=== PATIENT | female | born 1965 | race Caucasian/White ===

== ENCOUNTER → 2016-07-09 | Day surgery (SDC) | payer OTHER ==
[~2016-07-09] VITALS: Ht 170.2 cm; Wt 60.7 kg
[~2016-07-09] MED LIST: *PROMETHAZINE 25 MG/ML VIAL PERIprocedural use ONLY ONE; *morphine SULFATE 8 MG/ML PERIprocedure ONLY ONE; ACETAMINOPHEN 1000 MG/100 ML VIAL IV ONE; ACETAMINOPHEN 1000 MG/100 ML VIAL IV SCH; BACL10TA PO; BUPIVACAINE/EPINEPHRINE 0.25% PF 30 ML VIAL INFIL ONE; DEXAMETHASONE SOD PHOS 4 MG/ML VIAL ONE; DIAZ5TAB PO; DICY10CA12 PO; DO NOT ADM ANY ANTICOAGULANT DRUGS XX PRN; ESTR42.5V VAGINAL; FAMOTIDINE 20 MG/2 ML VIAL ONE; HYDROmorphone HCL 2 MG TAB PO PRN; INSULIN HUMAN REGULAR 1,000 UNITS/10 ML VIAL SQ PRN; KETOROLAC TROMETHAMINE 30 MG/ML (IVP) VIAL IV PUSH ONE; KETOROLAC TROMETHAMINE 30 MG/ML (IVP) VIAL ONE; LACTATED RINGER'S 1000 ML IV SCH; METOPROLOL TARTRATE 25 MG TAB PO PRN; MIDAZOLAM HCL 2 MG/2 ML VIAL ONE; MORPHINE SULFATE 4 MG/ML INJ IV PRN; MORPHINE SULFATE 4 MG/ML INJ ONE; NEOSTIGMINE METHYLSULFATE 10 MG/10 ML VIAL IV PUSH ONE; OMEP20TA PO; ONDANSETRON HCL 4 MG/2 ML VIAL IV PRN; ONDANSETRON HCL 4 MG/2 ML VIAL IV PUSH ONE; ONDANSETRON HCL 4 MG/2 ML VIAL IV PUSH SCH; ONDANSETRON HCL 4 MG/2 ML VIAL ONE; PROM25TA5 PO; PROPOFOL 200 MG/20 ML AMP IV ONE; SODIUM CHLOR 0.9% 250 ML INJ 250 ML ONE; SODIUM CHLORID 0.9% 500 ML IV SCH; TRAM50TA PO; VANCOMYCIN 1,000 MG/NS 250ML (for <70 kg) IV SCH; VANCOMYCIN HCL 1000 MG VIAL ONE; fentaNYL CITRATE 250 MCG/5 ML AMP ONE; metroNIDAZOLE 500 MG INJ 100 ML IV ONE; metroNIDAZOLE 500 MG INJ 100 ML IV SCH
[2016-07-09 08:30] VITALS: BP 108/76; PULSE 80; RESP 20; TEMP 99.1; O2SAT 99
[2016-07-09 12:20] VITALS: BP 127/71; PULSE 65; RESP 18; TEMP 97.4; O2SAT 96
--- NOTE | 2016-07-16 16:47 | MP ---
cc: TYLER MATHEW M.D. DATE OF SURGERY 05/09/17 1965 DATE OF OPERATION 07/09/2016 PREOPERATIVE DIAGNOSIS Symptomatic cholelithiasis. POSTOPERATIVE DIAGNOSIS Symptomatic cholelithiasis. PROCEDURE Laparoscopic cholecystectomy SURGEON Grayson Mathew MD ANESTHESIA General endotracheal ESTIMATED BLOOD LOSS Scant FINDINGS Gallbladder with stones. SPECIMEN Gallbladder with stones. COMPLICATIONS None OPERATION The patient was brought to the operating room and placed on the operating table in supine position. Bilateral sequential inflation device placed on lower extremities. General anesthesia instituted. Antibiotics initiated. The abdomen was prepped and draped sterilely. The umbilical region anesthetized with 0.25% Marcaine with epinephrine. A skin incision was made, 5 mm OptiView port placed under direct vision and pneumoperitoneum created. Under direct vision, a 12 mm subxiphoid and two 5 mm right upper quadrant ports were placed. Prior to placement of all ports, the skin and peritoneum were anesthetized with 0.25% Marcaine with epinephrine. The patient was placed in reverse Trendelenburg position right side up. The gallbladder retracted into upper abdomen, infundibulum retracted, Calot's triangle opened. The hepatoduodenal ligament incised. The cystic artery identified, circumferentially dissected. It was ligated with hemoclips and divided between the clips. The cystic duct identified, circumferentially dissected, ligated with hemoclips divided between the clips. The gallbladder was then removed from the liver bed using a Bovie. Hemostasis achieved along the way using a Bovie. The gallbladder was retrieved from the peritoneal cavity in an Endopouch through the 12 mm port site. Liver bed was inspected. No evidence of bile leak or hemorrhage. CO2 was released, all ports removed, all skin incisions closed with 4-0 Monocryl. The abdominal wall was cleaned and sterile dressing placed. The patient was awakened and taken to recovery room. MD KELLY Barrow/ /4:02 PM /4:43 PM
== END | disposition home or self-care (01) ==
LOC: HSDC 07:36
PROVIDERS: ATTEND Surgery
DX: K80.10 Calculus of gallbladder with chronic cholecystitis without obstruction (principal); F17.200 Nicotine dependence, unspecified, uncomplicated
CPT/HCPCS: 00790; 47562; 88304; J0131; J1100; J2250; J2270; J2405; J2550; J2710; J3010; J3370; J7050; J1885

== ENCOUNTER 2017-09-10 11:23 | Emergency (ER) | payer OTHER ==
[~2017-09-10] VITALS: Ht 170.2 cm; Wt 65.0 kg
[~2017-09-10 11:23] MED LIST changes: -*PROMETHAZINE 25 MG/ML VIAL PERIprocedural use ONLY ONE; -*morphine SULFATE 8 MG/ML PERIprocedure ONLY ONE; -ACETAMINOPHEN 1000 MG/100 ML VIAL IV ONE; -ACETAMINOPHEN 1000 MG/100 ML VIAL IV SCH; -BUPIVACAINE/EPINEPHRINE 0.25% PF 30 ML VIAL INFIL ONE; -DEXAMETHASONE SOD PHOS 4 MG/ML VIAL ONE; -DO NOT ADM ANY ANTICOAGULANT DRUGS XX PRN; -FAMOTIDINE 20 MG/2 ML VIAL ONE; -HYDROmorphone HCL 2 MG TAB PO PRN; -INSULIN HUMAN REGULAR 1,000 UNITS/10 ML VIAL SQ PRN; -KETOROLAC TROMETHAMINE 30 MG/ML (IVP) VIAL IV PUSH ONE; -KETOROLAC TROMETHAMINE 30 MG/ML (IVP) VIAL ONE; -LACTATED RINGER'S 1000 ML IV SCH; -METOPROLOL TARTRATE 25 MG TAB PO PRN; -MIDAZOLAM HCL 2 MG/2 ML VIAL ONE; -MORPHINE SULFATE 4 MG/ML INJ IV PRN; -MORPHINE SULFATE 4 MG/ML INJ ONE; -NEOSTIGMINE METHYLSULFATE 10 MG/10 ML VIAL IV PUSH ONE; -OMEP20TA PO; +OMEP20TA93 PO; -ONDANSETRON HCL 4 MG/2 ML VIAL IV PRN; -ONDANSETRON HCL 4 MG/2 ML VIAL IV PUSH ONE; -ONDANSETRON HCL 4 MG/2 ML VIAL IV PUSH SCH; -ONDANSETRON HCL 4 MG/2 ML VIAL ONE; -PROPOFOL 200 MG/20 ML AMP IV ONE; -SODIUM CHLOR 0.9% 250 ML INJ 250 ML ONE; -SODIUM CHLORID 0.9% 500 ML IV SCH; -VANCOMYCIN 1,000 MG/NS 250ML (for <70 kg) IV SCH; -VANCOMYCIN HCL 1000 MG VIAL ONE; -fentaNYL CITRATE 250 MCG/5 ML AMP ONE; -metroNIDAZOLE 500 MG INJ 100 ML IV ONE; -metroNIDAZOLE 500 MG INJ 100 ML IV SCH
[2017-09-10 11:37] VITALS: BP 146/73; PULSE 92; RESP 16; TEMP 99.1; O2SAT 98
[2017-09-10] MEDS ORDERED: SODIUM CHLORIDE 0.9% FLUSH 10 ML FLUSH IVF PRN (12:00)
[2017-09-10] MEDS ORDERED: PROM25TA10 PO (12:01)
--- NOTE | 2017-09-10 12:01 | PD ---
HPI Chief Complaint: Syncope/Near-Syncope Time Seen by Provider: 11:49 Travel History International Travel<30 days: No Contact w/Intl Traveler<30days: No Traveled to known affect area: No History of Present Illness HPI The patient was seen and examined in the presence of the nurse. This patient complains of feeling drowsy and groggy and at times confused. She says that a week ago she slipped and fell and hit the back of her head on the floor in the bathroom. Seems to be worse since that time. She has history of fibromyalgia and IBS. She takes Valium and tramadol and Phenergan and baclofen. She denies any intentional overdose or overuse of medication. Symptoms severity is moderate. No alleviating factors. Symptoms are likely exacerbated by her multiple sedating medications. Duration one week. She denies alcohol or drug abuse but does drink 3 times per week PFSH Past Medical History Cancer: No Cardiovascular Problems: Yes (MITRAL PROLASPE VALVE) Diabetes: No Diminished Hearing: No Endocrine: No Genitourinary: No Hepatitis: No Hiatal Hernia: No Immune Disorder: No Musculoskeletal: Yes (COSTOCONDRITIS, HX FALLS) Neurologic: Yes (FIBROMYALGIA) Psychiatric: Yes (ANXIETY AND DEPRESSION) Reproductive: Yes (MENOPAUSE) Respiratory: Yes (PE AFTER SURGERY 1995 DUE TO MEDICATION ERROR PER PATIENT.) Thyroid Disease: No ?: Not Menopausal: Yes Past Surgical History Abdominal Surgery: No AICD: No Cardiac Surgery: No Ear Surgery: No Endocrine Surgery: No Eye Surgery: No Genitourinary Surgery: No Gynecologic Surgery: No Joint Replacement: No Oral Surgery: Yes (TONSILECTOMY) Pacemaker: No Thoracic Surgery: No Social History Alcohol Use: Yes (4-5 beers/daily) Tobacco Use: Yes (7-8 cigarettes/daily) Substance Use: No Allergies-Medications (Allergen,Severity, Reaction): Coded Allergies: penicillin G (Unverified Allergy, Intermediate, RASH, 09/10/17) codeine (Unverified Adverse Reaction, Intermediate, VOMITING, 09/10/17) Reported Meds & Prescriptions Reported Meds & Active Scripts Active Reported Phenergan (Promethazine HCl) 25 Mg Tablet 25 Mg PO BID Omeprazole 20 Mg Tab 20 Mg PO DAILY Diazepam 5 Mg Tab 5 Mg PO BID Baclofen 10 Mg Tab 10 Mg PO TID Tramadol (Tramadol HCl) 50 Mg Tab 50 Mg PO Q6H Review of Systems General / Constitutional: No: Fever Eyes: No: Visual changes HENT: Positive: Headaches Cardiovascular: No: Chest Pain or Discomfort Respiratory: No: Shortness of Breath Gastrointestinal: No: Abdominal Pain Genitourinary: No: Dysuria Musculoskeletal: No: Pain Skin: No Rash Neurologic: Positive: Headache, Change in Mentation, No: Weakness Psychiatric: No: Depression Endocrine: No: Polydipsia Hematologic/Lymphatic: No: Easy Bruising Physical Exam Narrative GENERAL: Well-nourished, well-developed patient in no apparent distress. SKIN: Focused skin assessment reveals no rash and nodules. Skin is Warm and dry. HEAD: Atraumatic. Normocephalic. EYES: Pupils equal and round. No scleral icterus. No injection or drainage. ENT: No nasal bleeding or discharge. Mucous membranes pink and moist. NECK: Trachea midline. No JVD. No meningeal signs CARDIOVASCULAR: Regular rate and rhythm. No murmur appreciated. RESPIRATORY: No accessory muscle use. Clear to auscultation. Breath sounds equal bilaterally. GASTROINTESTINAL: Abdomen soft, non-tender, nondistended. Hepatic and splenic margins not palpable. MUSCULOSKELETAL: No obvious deformities. No clubbing. No cyanosis. No edema. NEUROLOGICAL: Awake but a bit drowsy but follows commands and answers questions. No obvious cranial nerve deficits. Motor grossly within normal limits. Normal speech. PSYCHIATRIC: Appropriate mood and affect; insight and judgment slightly reduced . Data Data Last Documented VS Vital Signs Date Time Temp Pulse Resp B/P (MAP) Pulse Ox O2 Delivery O2 Flow Rate FiO2 09/10/17 13:49 64 20 140/77 (98) 97 09/10/17 11:37 99.1 Orders Orders Basic Metabolic Panel (Bmp) (09/10/17 11:55) Complete Blood Count With Diff (09/10/17 11:55) Urinalysis - C+S If Indicated (09/10/17 11:55) Ct Brain W/O Iv Contrast(Rout) (09/10/17 11:55) Iv Access Insert/Monitor (09/10/17 11:55) Sodium Chloride 0.9% Flush (Ns Flush) (09/10/17 12:00) Drug Screen, Random Urine (09/10/17 11:55) Alcohol (Ethanol) (09/10/17 11:55) I-Stat Profile (09/10/17 12:05) Labs Laboratory Tests Test 09/10/17 12:05 09/10/17 12:58 White Blood Count 8.1 TH/MM3 Red Blood Count 4.19 MIL/MM3 Hemoglobin 13.3 GM/DL Bedside Hemoglobin G/DL Hematocrit 40.0 % Bedside Hematocrit % Mean Corpuscular Volume 95.3 FL Mean Corpuscular Hemoglobin 31.8 PG Mean Corpuscular Hemoglobin Concent 33.3 % Red Cell Distribution Width 13.3 % Platelet Count 217 TH/MM3 Mean Platelet Volume 8.6 FL Neutrophils (%) (Auto) 73.0 % Lymphocytes (%) (Auto) 16.6 % Monocytes (%) (Auto) 4.6 % Eosinophils (%) (Auto) 1.3 % Basophils (%) (Auto) 4.5 % Neutrophils # (Auto) 5.9 TH/MM3 Lymphocytes # (Auto) 1.3 TH/MM3 Monocytes # (Auto) 0.4 TH/MM3 Eosinophils # (Auto) 0.1 TH/MM3 Basophils # (Auto) 0.4 TH/MM3 CBC Comment DIFF FINAL Differential Comment Bedside Sodium 139 MMOL/L Blood Urea Nitrogen 15 MG/DL Creatinine 1.02 MG/DL Random Glucose 138 MG/DL Calcium Level 8.8 MG/DL Sodium Level 137 MEQ/L Potassium Level 4.4 MEQ/L Chloride Level 103 MEQ/L Carbon Dioxide Level 26.0 MEQ/L Bedside Potassium 4.4 MMOL/L Bedside Chloride 102 MMOL/L Anion Gap 8 MEQ/L Bedside Blood Urea Nitrogen 47 MG/DL Bedside Creatinine 0.7 MG/DL Estimat Glomerular Filtration Rate 56 ML/MIN Bedside Glucose 141 MG/DL Ethyl Alcohol Level LESS THAN 3 MG/DL Urine Collection Type VOIDED Urine Color STRAW Urine Turbidity CLEAR Urine pH 6.0 Urine Specific [place] LESS/EQUAL 1.005 Urine Protein NEG mg/dL Urine Glucose (UA) NEG mg/dL Urine Ketones NEG mg/dL Urine Occult Blood TRACE Urine Nitrite NEG Urine Bilirubin NEG Urine Urobilinogen 0.2 MG/DL Urine Leukocyte Esterase NEG Urine Squamous Epithelial Cells 0-2 /hpf Microscopic Urinalysis Comment CULT NOT INDICATED Urine Opiates Screen NEG Urine Barbiturates Screen NEG Urine Amphetamines Screen NEG Urine Benzodiazepines Screen POS Urine Cocaine Screen NEG Urine Cannabinoids Screen NEG MDM Medical Decision Making Medical Screen Exam Complete: Yes Emergency Medical Condition: Yes Medical Record Reviewed: Yes Differential Diagnosis Polypharmacy, overmedication, concussion, intracranial hemorrhage Narrative Course I have reviewed the patient's electronic medical record. I don't see an acute neurologic deficit here. She has some mild global drowsiness suggesting overmedication Brain CT is normal Labs and urine sent Urine is clean and labs reasonably normal Tox screen negative except for the benzo she is prescribed alcohol negative I believe this patient is significantly overmedicated. She is not rising to a level of hospitalization. Recommending she stop using baclofen and Phenergan and sparingly use her tramadol Recommend she gradually wean off her Valium but work with her doctor on this. Diagnosis Primary Impression: Medication side effects Additional Impressions: Lethargy Head injury Qualified Codes: S09.90XA - Unspecified injury of head, initial encounter Additional Instructions: The patient was advised to follow up with their physician and return if they worsen. Recommend gradual wean off of Valium Recommend stopping Bactrim and reducing tramadol and Phenergan use Med/Other Pt SpecificInfo: Other Disposition: 01 DISCHARGE HOME Condition: Stable Gwyn Rose MD Sep 10, 2017 12:01
[2017-09-10 12:20] LABS: AUTOMATED NEUTROPHIL # 5.9 TH/MM3 (1.8-7.7); BASOPHIL # 0.4 TH/MM3 (0-0.2); BASOPHIL % 4.5 % (0.0-2.0); EOSINOPHIL # 0.1 TH/MM3 (0-0.4); EOSINOPHIL % 1.3 % (0.0-4.0); HEMOGLOBIN 13.3 GM/DL (11.6-15.3); LYMPH % 16.6 % (9.0-44.0); LYMPHOCYTE # 1.3 TH/MM3 (1.0-4.8); MEAN CELL VOLUME 95.3 FL (80.0-100.0); MEAN CORPUSCULAR HEMOGLOBIN 31.8 PG (27.0-34.0); MEAN CORPUSCULAR HGB CONC 33.3 % (32.0-36.0); MEAN PLATELET VOLUME 8.6 FL (7.0-11.0); MONO % 4.6 % (0.0-8.0); MONOCYTE # 0.4 TH/MM3 (0-0.9); PLATELET COUNT 217 TH/MM3 (150-450); RED BLOOD COUNT 4.19 MIL/MM3 (4.00-5.30); RED CELL DISTRIBUTION WIDTH 13.3 % (11.6-17.2); WHITE BLOOD COUNT 8.1 TH/MM3 (4.0-11.0)
--- NOTE | 2017-09-10 12:30 | RADRPT ---
EXAM DATE/TIME: 09/10/2017 12:19 [facility] COMPARISON: CT BRAIN W/O CONTRAST, November 07, 2014, 21:47. INDICATIONS : Trauma. Fell and hit back of head 1 week ago. Loss of consciousness. Cephalgia. Altered mental st atus. RADIATION DOSE: 55.34 CTDIvol (mGy) MEDICAL HISTORY : Cardiovascular disease. Gastroesophageal reflux disease. Renal calculi. SURGICAL HISTORY : None. ENCOUNTER: Initial ACUITY: 1 week PAIN SCALE: 6/10 LOCATION: cranial TECHNIQUE: Multiple contiguous axial images were obtained of the head. Using automated exposure control and adj ustment of the mA and/or kV according to patient size, radiation dose was kept as low as reasonably a chievable to obtain optimal diagnostic quality images. DICOM format image data is available electro nically for review and comparison. FINDINGS: CEREBRUM: Mild cerebral atrophy. The ventricles are normal for age. No evidence of midline shift, mass lesion, hemorrhage or acute infarction. No extra-axial fluid collections are seen. POSTERIOR FOSSA: The cerebellum and brainstem are intact. The 4th ventricle is midline. The cerebellopontine angle i s unremarkable. EXTRACRANIAL: The visualized portion of the orbits is intact. SKULL: The calvaria is intact. No evidence of skull fracture. CONCLUSION: 1. No acute intracranial abnormality. Toñito Coppola MD on September 10, 2017 at 12:27 Board Certified Radiologist. This report was verified electronically.
[2017-09-10 12:56] VITALS: BP 112/61; PULSE 62; RESP 20; O2SAT 96
[2017-09-10 13:02] LABS: BILIRUBIN, URINE NEG (NEG); BLOOD, URINE TRACE (NEG); GLUCOSE,URINE NEG (NEG); KETONE, URINE NEG (NEG); NITRITE,URINE NEG (NEG); URINE LEUKOCYTE ESTERASE NEG (NEG)
[2017-09-10 13:14] LABS: URINE COLOR STRAW (YELLW/STRAW)
[2017-09-10 13:23] LABS: CREATININE 1.02 MG/DL (0.50-1.00); GLOMERULAR FILTRATION RATE 56 ML/MIN (>89)
[2017-09-10 13:24] LABS: BLOOD UREA NITROGEN 15 MG/DL (7-18); CALCIUM 8.8 MG/DL (8.5-10.1); CHLORIDE 103 MEQ/L (98-107); GLUCOSE,RANDOM 138 MG/DL (74-106); SODIUM (NA) 137 MEQ/L (136-145)
[2017-09-10 13:36] LABS: SQUAMOUS EPITHELIAL CELL URINE 0-2 /hpf (0-5)
[2017-09-10 13:49] VITALS: BP 140/77; PULSE 64; RESP 20; O2SAT 97
== END 2017-09-10 14:52 | disposition home or self-care (01) ==
LOC: PHED 11:23
DX: R53.83 Other fatigue (principal); S09.90XA Unspecified injury of head, initial encounter; M79.7 Fibromyalgia; K58.9 Irritable bowel syndrome, unspecified; W01.198A Fall on same level from slipping, tripping and stumbling with subsequent striking against other object, initial encounter; Y92.002 Bathroom of unspecified non-institutional (private) residence as the place of occurrence of the external cause; Z72.0 Tobacco use
CPT/HCPCS: 70450; 80048; 80307; 81001; 85025; 99284